=== PATIENT | female | born 1960 | race Caucasian/White ===

== ENCOUNTER 2021-03-21 12:28 | Outpatient (REF) | payer MEDICAID, SELFPAY ==
[2021-03-21 21:33] LABS: Calculated LDL 173 mg/dL (<100); Cholesterol 269 mg/dL (<200); HDL Cholesterol 77 mg/dL (40-60); Triglyceride 96 mg/dL (<150)
[2021-03-23 10:56] LABS: Hepatitis C Ab w Rflx HCV PCR Negative (Negative)
== END 2021-03-21 12:29 | disposition home or self-care (01) ==
LOC: NCHCN 12:28
PROVIDERS: PCP Nurse Practitioner Community Health; Visit Provider Nurse Practitioner Community Health
DX: Z13.220 Encounter for screening for lipoid disorders (principal); Z11.59 Encounter for screening for other viral diseases
CPT/HCPCS: 80061; 86803

== ENCOUNTER 2021-03-28 13:48 | Outpatient (REF) | payer MEDICAID, SELFPAY ==
--- NOTE | 2021-03-28 08:45 | PAPFT_PTH ---
PATIENT: Malou Guthrie LOC: NCN #:[id number] AGE/SX: 60/F ROOM: RE03/28/[address]: Katiy Cabral : 1960 BED: DIS: 03/28/2021 SPEC #: [id number] RECD: 03/31/21 12:39 STATUS: JULIETTE REJaquan #: [id number] GILDA: 03/28/21 08:[address]: Kaity Cabral DEPT: [facility] Cytology RECD BY: Mayra Honeycutt Tissues: 1 - CX/ENDOCX FOR PAP SMEARS Procedures: PAP THIN PREP/UVM Screening HPV DNA PROBE Comments: [id number]
== END 2021-03-28 13:49 | disposition home or self-care (01) ==
LOC: NCHCN 13:48
PROVIDERS: PCP Nurse Practitioner Community Health; Visit Provider Nurse Practitioner Community Health
DX: Z12.4 Encounter for screening for malignant neoplasm of cervix (principal); Z11.51 Encounter for screening for human papillomavirus (HPV)
CPT/HCPCS: 88142; 87624

== ENCOUNTER 2021-07-13 20:23 | Outpatient (REF) | payer MEDICAID, SELFPAY ==
[2021-07-15 09:41] LABS: HIV-1/2 Ag & Ab Screen Negative (Negative)
[2021-07-15 15:19] LABS: Chlamydia Result Negative (Negative); GC Result Negative (Negative)
== END 2021-07-13 20:24 | disposition home or self-care (01) ==
LOC: NCHCN 20:23
PROVIDERS: PCP Nurse Practitioner Community Health; Visit Provider Nurse Practitioner Community Health
DX: Z11.3 Encounter for screening for infections with a predominantly sexual mode of transmission (principal); Z11.4 Encounter for screening for human immunodeficiency virus [HIV]
CPT/HCPCS: 87389; 87491; 87591